=== PATIENT | female | born 1995 | race Caucasian/White ===

== ENCOUNTER 2016-10-06 08:33 | Day surgery (SDC) | payer OTHER ==
[2016-10-03 15:07] LABS: MANUAL DIFF NEEDED? NO
[2016-10-03 15:12] LABS: BASO% 0.3 % (0.0-0.8); EOS# 0.11 X1000 (0.0-0.7); EOS% 1.7 % (0.0-10.0); HEMATOCRIT 39.7 % (37.0-47.0); HEMOGLOBIN 12.8 g/dL (12.0-16.0); MCH 28.3 PG (27-31); MCHC 32.2 g/dL (33-37); MCV 87.6 FL (81-99); MONO# 0.39 X1000 (0.11-0.59); MPV 10.6 FL (7.4-10.4); PLT 276 X1000 (130-400); RBC 4.53 XMIL (4.2-5.4)
[2016-10-03 15:31] LABS: AGAP 13; ALBUMIN 4.5 g/dL (3.5-5.0); ALKALINE PHOSPHATASE 134 U/L (32-104); BUN 14 mg/dL (8-22); CALCIUM 9.7 mg/dL (8.8-10.2); CHLORIDE 98 mmol/L (98-107); COSMO 272; GOT 18 U/L (10-30); GPT 31 U/L (10-36); POTASSIUM 4.1 mmol/L (3.5-5.1); SODIUM 136 mmol/L (136-145); TCO2 25 mmol/L (25-35); TOTAL BILIRUBIN 0.35 mg/dL (0.20-1.00)
[2016-10-06] MEDS ORDERED: LR 1,000 ML ONE ×3 (09:03→12:23)
[2016-10-06] MEDS ORDERED: MEFOXIN 2 GM/NS 50 ML ONE (09:04)
[2016-10-06] MEDS ORDERED: VALIUM ONE (09:15)
[2016-10-06] MEDS ORDERED: XYLOCAINE 1% ONE (10:39)
[2016-10-06] MEDS ORDERED: SODIUM CHLORIDE 0.9% ONE (10:39)
[2016-10-06] MEDS ORDERED: MARCAINE 0.25% PF/EPI 1:200,000 ONE (10:39)
[2016-10-06] MEDS ORDERED: VERSED ONE (12:11)
[2016-10-06] MEDS ORDERED: FENTANYL ONE (12:11)
[2016-10-06] MEDS ORDERED: DIPRIVAN 1% ONE (12:12)
[2016-10-06] MEDS ORDERED: MORPHINE ONE ×2 (12:15→12:33)
[2016-10-06] MEDS: MORPHINE ONE ×2 (12:20→12:33)
[2016-10-06] MEDS ORDERED: EPHEDRINE ONE (12:22)
[2016-10-06] MEDS ORDERED: QUELICIN (DOSE) ONE (12:22)
[2016-10-06] MEDS ORDERED: XYLOCAINE-MPF 2% ONE (12:22)
[2016-10-06] MEDS ORDERED: ZEMURON ONE (12:22)
[2016-10-06] MEDS ORDERED: DECADRON ONE (12:23)
--- NOTE | 2016-10-06 12:29 | OPERATIVE NOTE ---
PROCEDURE DATE: 10/06/2016 PREOPERATIVE DIAGNOSIS: Cholelithiasis. POSTOPERATIVE DIAGNOSIS: Cholelithiasis. PROCEDURE: Laparoscopic cholecystectomy. SURGEON: Melquiades Carrillo MD [employer]ACHINE OPERATOR HELPER: None. ANESTHESIA: General endotracheal. INTRAOPERATIVE FINDINGS: As above. COMPLICATIONS: None at time of dictation. ESTIMATED BLOOD LOSS: 5 mL. SPECIMENS REMOVED: Gallbladder and its contents. BRIEF HISTORY: The patient is a 21-year-old female presenting with right upper quadrant postprandial pain. She had stones and sludge noted on ultrasound. It was felt that this was related to cholelithiasis. The risks, benefits, alternatives for surgical intervention were discussed. She voiced understanding and wished to proceed with procedure. DESCRIPTION OF PROCEDURE: After informed consent was obtained, patient was brought to the operative theatre, transferred to the operating table and placed in the supine position. General endotracheal anesthesia was then performed without complication. A formal time-out was then performed confirming patient, date, procedure. All were in agreement. At that time, attention was given to abdomen. An infraumbilical incision was made through which using Optiview technique, we were able insert a trocar, connected to insufflation. Pneumoperitoneum was achieved. Under direct visualization, placed 3 more trocars, all 5 mm 1 in the subxiphoid, 2 in the right upper quadrant. Using these, the gallbladder was identified. There were some stones noted in its, very small stones though. We were able to retract the gallbladder cephalad, dissected out the cystic duct and cystic artery to achieve the critical view of safety. We then doubly clipped and ligated the cystic duct and cystic artery and took the gallbladder off the gallbladder fossa using electrocautery. All hemostasis was achieved with electrocautery and clips. We brought the gallbladder out through the infraumbilical incision. We irrigated out the abdomen copiously until the suctioned fluid was clear. We then closed the infraumbilical site with a 0 Vicryl and Gabriele- Erin device and then removed all trocars, disconnected insufflation, and closed all trocar sites with 4-0 Monocryl. The patient had sterile dressing applied to each incision. The patient tolerated the procedure well, was transferred to recovery room in stable condition.
[2016-10-06] MEDS ORDERED: NORCO-10 ONE (13:10)
[2016-10-06] MEDS ORDERED: ZOFRAN ONE (14:17)
[2016-10-06 15:03] VITALS: BP 109/69
== END 2016-10-06 14:55 | disposition home or self-care (01) ==
LOC: OPS 08:33
PROVIDERS: ATTEND Surgery
DX: K80.10 Calculus of gallbladder with chronic cholecystitis without obstruction (principal)
CPT/HCPCS: 80053; 81025; 85025; 88304; J0330; J0694; J1100; J2250; J2270; J2405; J3010; J7120